=== PATIENT | female | born 1960 | race Asian ===

== ENCOUNTER 2024-01-12 15:18 | Inpatient (IN) | payer MEDICARE, OTHER ==
[~2024-01-12] VITALS: Ht 162.6 cm; Wt 79.2 kg
[2024-01-12] MEDS ORDERED: POLY17PO47 PO (16:55)
[2024-01-12] MEDS ORDERED: MAGN-169 PO (16:55)
[2024-01-12] MEDS ORDERED: PANT-31 PO (16:55)
[2024-01-12] MEDS ORDERED: MULT-1203 PO (16:55)
[2024-01-12] MEDS ORDERED: PALI6TAB15 PO (16:55)
[2024-01-12] MEDS ORDERED: PHEN100C10 PO (16:55)
[2024-01-12 17:18] LABS: BASOPHILS % (AUTO) 0.3 % (0.0-2.0); EOSINOPHILS % (AUTO) 1.4 % (1.0-6.0); HEMATOCRIT 31.4 % (36-46); HEMOGLOBIN 10.4 g/dL (12.0-16.0); LYMPHOCYTES # (AUTO) 1.4 K/uL (1.0-4.8); LYMPHOCYTES % (AUTO) 23.3 % (22.0-44.0); MEAN CORPUSCULAR HEMOGLOBIN 31.4 pg (26.0-34.0); MEAN CORPUSCULAR HGB CONC 33.1 G/dL (31.0-37.0); MEAN CORPUSCULAR VOLUME 95 fL (80-100); MONOCYTES # (AUTO) 0.6 K/uL (0.1-1.0); MONOCYTES % (AUTO) 10.4 % (2.0-9.0); NEUTROPHILS # (AUTO) 3.8 K/uL (1.8-7.7); NEUTROPHILS % (AUTO) 64.6 % (40.0-70.0); PLATELET COUNT (AUTO) 302 K/uL (150-450); RED CELL DISTRIBUTION WIDTH 14.2 % (11.5-14.5); WHITE BLOOD COUNT (AUTO) 5.9 K/uL (4.5-11.0)
[2024-01-12 17:38] LABS: ANION GAP 8 mmol/L (8-16); CALCIUM, TOTAL 8.4 mg/dL (8.8-10.5); CARBON DIOXIDE 27 mmol/L (22-29); CHLORIDE 103 mmol/L (98-107); CREATININE 0.66 mg/dL (0.60-1.30); GLOMERULAR FILTR. RATE CALC > 60 mL/min (>60); GLUCOSE,RANDOM 123 mg/dL (70-110); POTASSIUM 3.7 mmol/L (3.5-5.1); SODIUM SERUM 138 mmol/L (136-145); UREA NITROGEN, BLOOD 9 mg/dL (7-18)
[2024-01-12 17:45] LABS: ALANINE AMINOTRANSFERASE 29 U/L (12-78); ALKALINE PHOSPHATASE 113 U/L (46-116); ASPARTATE AMINOTRANSFERASE 23 U/L (15-37); BILIRUBIN,TOTAL 0.2 mg/dL (0.1-1.0); TOTAL PROTEIN, SERUM 6.9 g/dL (6.4-8.2)
[2024-01-12 17:54] LABS: TROPONIN I-HIGH SENSITIVITY 5 ng/L (<51)
[2024-01-13] MEDS ORDERED: ALBUTEROL SULFATE 2.5 MG/0.5 ML NEB SOLUTION NEB PRN (08:30)
[2024-01-13] MEDS ORDERED: IPRATROPIUM BROMIDE 0.5 MG/2.5 ML NEB SOLUTION NEB PRN (08:30)
[2024-01-13] MEDS: MULTIVITAMINS, THERAPEUTIC TABLET PO SCH (09:42)
[2024-01-13] MEDS: PANTOPRAZOLE SODIUM 40 MG DR TABLET PO SCH (09:42)
[2024-01-13] MEDS: PHENYTOIN SODIUM 100 MG ER CAPSULE PO SCH (09:42)
[2024-01-13] MEDS: ACETAMINOPHEN 325 MG TABLET PO PRN (10:12)
[2024-01-13 13:44] LABS: APPEARANCE,URINE CLEAR (CLEAR); BILIRUBIN,URINE NEGATIVE (NEGATIVE); COLOR,URINE LIGHT YELLOW (YELLOW); GLUCOSE, URINE (UA) NEGATIVE (NEGATIVE); KETONES,URINE NEGATIVE (NEGATIVE); LEUKOCYTE ESTERASE ,URINE SMALL (NEGATIVE); NITRATE,URINE NEGATIVE (NEGATIVE); OCCULT BLOOD,URINE NEGATIVE (NEGATIVE); PH,URINE 6.5 (5.0-8.0); PROTEIN,URINE NEGATIVE (NEGATIVE); SPECIFIC GRAVITIY, URINE 1.008 (1.003-1.030); UROBILINOGEN,URINE <=1.0 mg/dL (<=1.0)
[2024-01-13 14:15] LABS: BACTERIA,URINE Many /HPF (None Seen); RBC,URINE None Seen /HPF (0-2)
[2024-01-13] MEDS: PALIPERIDONE 6 MG ER TABLET PO SCH (20:18)
[2024-01-13 21:32] VITALS: BP 120/67; PULSE 77; RESP 18; TEMP 98.5; O2SAT 99
[2024-01-13] MEDS: MELATONIN 5 MG TABLET PO PRN (23:42)
[2024-01-14 04:41] VITALS: BP 132/80; PULSE 85; RESP 18; TEMP 97.5; O2SAT 97
[2024-01-14 08:00] LABS: GLUCOMETER DEV NAME(LOC) 6S.2; GLUCOSE,POINT OF CARE 108 MG/DL (70-110)
[2024-01-14 08:15] VITALS: BP 125/82; PULSE 82; RESP 20; TEMP 98.2; O2SAT 99
[2024-01-14 15:27] VITALS: BP 128/86; PULSE 96; RESP 20; TEMP 98.5; O2SAT 96
[2024-01-14 19:57] VITALS: BP 126/82; PULSE 90; RESP 18; TEMP 98.2; O2SAT 97
[2024-01-15 05:58] VITALS: BP 150/68; PULSE 87; RESP 18; TEMP 98.5; O2SAT 96
[2024-01-15 08:07] VITALS: BP 105/93; PULSE 81; RESP 18; TEMP 98.2; O2SAT 98
[2024-01-15] MEDS ORDERED: BENZ2TAB84 PO (14:01)
[2024-01-15] MEDS ORDERED: GABA-529 PO (14:01)
[2024-01-15] MEDS ORDERED: ESLI600T PO (14:01)
[2024-01-15] MEDS ORDERED: MEGE400O39 PO (14:01)
[2024-01-15] MEDS ORDERED: LEVE750T10 PO (14:01)
[2024-01-15] MEDS ORDERED: LEVO25TA9 PO (14:01)
[2024-01-15 15:25] VITALS: BP 123/76; PULSE 86; RESP 18; TEMP 98.4; O2SAT 94
[2024-01-15 19:42] VITALS: BP 136/74; PULSE 95; RESP 18; TEMP 99.2; O2SAT 96
[2024-01-15] MEDS: BENZTROPINE MESYLATE 2 MG TABLET PO SCH (21:31)
[2024-01-16 08:00] VITALS: BP 129/84; PULSE 97; RESP 16; TEMP 97.9; O2SAT 99
[2024-01-16] MEDS: ETHYL ALCOHOL 62% ANTISEPTIC NASAL SANITIZER 0.6 ML AMPUL NASAL SCH (08:46)
[2024-01-16 15:49] VITALS: BP 124/68; PULSE 79; RESP 18; TEMP 98.5; O2SAT 94
[2024-01-16 19:53] VITALS: BP 135/61; PULSE 83; RESP 18; TEMP 98; O2SAT 98
[2024-01-16] MEDS ORDERED: SODIUM CHLORIDE 0.9% 1,000 ML ONE (20:06)
[2024-01-16] MEDS: AMPICILLIN SODIUM/SULBACTAM NA 1.5 GM in SODIUM CHLORIDE 0.9% 50 ML IV SCH (20:13)
[2024-01-17 05:08] VITALS: BP 108/51; PULSE 76; RESP 20; TEMP 97.8; O2SAT 100
[2024-01-17 07:49] VITALS: BP 132/74; PULSE 87; RESP 19; TEMP 98.4; O2SAT 99
[2024-01-17 15:20] VITALS: BP 119/64; PULSE 87; RESP 18; TEMP 97.8; O2SAT 98
[2024-01-17 20:27] VITALS: BP 120/72; PULSE 83; RESP 18; TEMP 98.6; O2SAT 93
[2024-01-18 08:12] VITALS: BP 124/74; PULSE 87; RESP 20; TEMP 97.9; O2SAT 98
[2024-01-18] MEDS ORDERED: AMOX-457 PO (16:54)
[2024-01-18] MEDS ORDERED: ETHY1MED2 NASAL (16:57)
[2024-01-18] MEDS ORDERED: MELA5TAB40 PO (16:57)
[2024-01-18 17:27] VITALS: BP 131/63; PULSE 95; RESP 20; TEMP 98.1; O2SAT 98
[2024-01-18 20:16] VITALS: BP 116/68; PULSE 80; RESP 20; TEMP 98.2; O2SAT 96
[2024-01-18 20:19] LABS: COVID AG,FIA SOURCE NASAL SWAB
[2024-01-18 20:41] LABS: SARS-COV2 (COVID) ANTIGEN,FIA Negative (Negative)
== END 2024-01-18 22:30 | DRG 689 ==
LOC: EMS 15:18 → EDH 01-13 08:44 → 6S 01-13 08:55 → 4E 01-15 01:31
PROVIDERS: ADMIT Internal Medicine; ATTEND Internal Medicine
DX: N39.0 Urinary tract infection, site not specified (principal); E43 Unspecified severe protein-calorie malnutrition; R62.7 Adult failure to thrive; F41.9 Anxiety disorder, unspecified; G40.909 Epilepsy, unspecified, not intractable, without status epilepticus; E03.9 Hypothyroidism, unspecified; D64.9 Anemia, unspecified; I10 Essential (primary) hypertension; F25.9 Schizoaffective disorder, unspecified; Z88.8 Allergy status to other drugs, medicaments and biological substances; Z91.018 Allergy to other foods; Z68.30 Body mass index [BMI] 30.0-30.9, adult; R63.4 Abnormal weight loss; M19.90 Unspecified osteoarthritis, unspecified site
CPT/HCPCS: 71045; 80053; 81001; 82962; 84443; 84484; 85025; 87081; 87086; 87186; 92610; 93005; 97167; 97535; 99285; G0378; J0295; J7030; J7050; 36415-L1; 36415-TC

== ENCOUNTER 2024-01-18 15:48 | Inpatient (IN) | payer MEDICARE, MEDICAID ==
[~2024-01-18] VITALS: Ht 170.2 cm; Wt 75.7 kg
[~2024-01-18 15:48] MED LIST: BENZ2TAB84 PO; ESLI600T PO; GABA-529 PO; LEVE750T10 PO; LEVO25TA9 PO; MAGN-169 PO; MEGE400O39 PO; MULT-1203 PO; PALI6TAB15 PO; PANT-31 PO; PHEN100C10 PO; POLY17PO47 PO
[2024-01-18] MEDS ORDERED: AMOX-457 PO (16:54)
[2024-01-18] MEDS ORDERED: ETHY1MED2 NASAL (16:57)
[2024-01-18] MEDS ORDERED: MELA5TAB40 PO (16:57)
[2024-01-19 00:08] VITALS: BP 109/56; PULSE 82; RESP 18; TEMP 98.4; O2SAT 98
[2024-01-19] MEDS ORDERED: CloNIDine HCL 0.1 MG TABLET PO PRN (07:45)
[2024-01-19] MEDS ORDERED: BACITRACIN 28 GM OINTMENT TP PRN (07:45)
[2024-01-19] MEDS ORDERED: BENZOCAINE/MENTHOL LOZENGE PO PRN (07:45)
[2024-01-19] MEDS ORDERED: PETROLATUM,WHITE 28 GM JELLY TP PRN (07:45)
[2024-01-19] MEDS ORDERED: ONDANSETRON 4 MG TABLET PO PRN (07:45)
[2024-01-19 08:20] VITALS: BP 125/81; PULSE 74; RESP 18; TEMP 98.2; O2SAT 99
[2024-01-19] MEDS ORDERED: AMOX TR/POT CLAV 875 MG/125 MG TABLET PO SCH (09:00)
[2024-01-19] MEDS ORDERED: PHENYTOIN SODIUM 100 MG ER CAPSULE PO SCH (09:00)
[2024-01-19] MEDS ORDERED: MULTIVITAMINS, THERAPEUTIC TABLET PO SCH (09:00)
[2024-01-19] MEDS ORDERED: [UNRECOGNIZED DRUG - OTHER] PO SCH (09:00)
[2024-01-19] MEDS ORDERED: PANTOPRAZOLE SODIUM 40 MG DR TABLET PO SCH (09:00)
[2024-01-19] MEDS ORDERED: LEVOTHYROXINE SODIUM 25 MCG TABLET PO SCH (09:00)
[2024-01-19] MEDS: GABAPENTIN 100 MG CAPSULE PO SCH (11:52)
[2024-01-19] MEDS: AMOX TR/POT CLAV 875 MG/125 MG TABLET PO SCH (11:52)
[2024-01-19] MEDS: LEVOTHYROXINE SODIUM 25 MCG TABLET PO SCH (11:53)
[2024-01-19] MEDS: PHENYTOIN SODIUM 100 MG ER CAPSULE PO SCH (11:53)
[2024-01-19] MEDS: LevETIRAcetam 500 MG TABLET PO SCH (11:53)
[2024-01-19] MEDS: BENZTROPINE MESYLATE 2 MG TABLET PO SCH (11:54)
[2024-01-19] MEDS: ESCITALOPRAM OXALATE 10 MG TABLET PO SCH (11:55)
[2024-01-19] MEDS: MULTIVITAMINS, THERAPEUTIC TABLET PO SCH (11:56)
[2024-01-19] MEDS: ETHYL ALCOHOL 62% ANTISEPTIC NASAL SANITIZER 0.6 ML AMPUL NASAL SCH (12:10)
[2024-01-19 18:30] LABS: GLUCOMETER DEV NAME(LOC) 3EX.2; GLUCOSE,POINT OF CARE 108 MG/DL (70-110)
[2024-01-19] MEDS ORDERED: MELATONIN 5 MG TABLET PO PRN (21:00)
[2024-01-19] MEDS: PALIPERIDONE 6 MG ER TABLET PO SCH (21:27)
[2024-01-19] MEDS: MELATONIN 5 MG TABLET PO PRN (21:27)
[2024-01-19 22:07] VITALS: RESP 18
[2024-01-20 08:30] VITALS: BP 113/60; PULSE 85; RESP 16; TEMP 97.8; O2SAT 98
[2024-01-20 13:04] VITALS: BP 102/8; PULSE 108; RESP 18; TEMP 97.6
[2024-01-20] MEDS: ACETAMINOPHEN 325 MG TABLET PO PRN (13:08)
[2024-01-21] MEDS: LEVOTHYROXINE SODIUM 25 MCG TABLET PO SCH (06:39)
[2024-01-21 08:45] VITALS: BP 103/66; PULSE 87; RESP 19; TEMP 97.9; O2SAT 96
[2024-01-21 20:15] VITALS: BP 102/76; PULSE 66; RESP 18; TEMP 97.1; O2SAT 98
[2024-01-22 10:38] VITALS: BP 100/71; PULSE 91; RESP 18; TEMP 98.1; O2SAT 96
[2024-01-22 12:19] VITALS: BP 98/69; PULSE 94; RESP 18; TEMP 97.6
[2024-01-22] MEDS: IBUPROFEN 600 MG TABLET PO PRN (12:23)
[2024-01-22] MEDS: ZOLPIDEM TARTRATE 10 MG TABLET PO PRN (21:27)
[2024-01-22 22:34] VITALS: RESP 18; TEMP 97.2
[2024-01-23 06:12] VITALS: BP 103/64; PULSE 75; RESP 18; TEMP 97.2
[2024-01-23 09:20] VITALS: BP 97/57; PULSE 96; RESP 12; TEMP 97; O2SAT 98
[2024-01-23 10:20] VITALS: BP 111/68; PULSE 71; RESP 17; TEMP 98
[2024-01-23 16:19] VITALS: BP 128/66; PULSE 72; RESP 17; TEMP 97.6
[2024-01-23 17:19] VITALS: BP 118/73; PULSE 69; RESP 17; TEMP 97.8
[2024-01-23 20:00] VITALS: BP 104/70; PULSE 82; RESP 17; TEMP 96.9; O2SAT 99
[2024-01-24 08:56] VITALS: BP 109/58; PULSE 88; RESP 18; TEMP 97.9
[2024-01-24] MEDS: LORazepam 2 MG TABLET PO PRN (09:25)
[2024-01-24] MEDS: PALIPERIDONE PALMITATE 234 MG/1.5 ML SYRINGE IM ONE (21:57)
[2024-01-25 07:05] VITALS: BP 108/61; PULSE 83; RESP 18; TEMP 98.3; O2SAT 95
[2024-01-25 08:15] VITALS: BP 102/62; PULSE 74; RESP 16; TEMP 97.8; O2SAT 95
[2024-01-25 18:53] VITALS: BP 111/67; PULSE 78; RESP 17; TEMP 98.2; O2SAT 97
[2024-01-25 22:30] VITALS: BP 92/61; PULSE 75; RESP 18; TEMP 98.6; O2SAT 99
[2024-01-26 05:04] VITALS: RESP 18
[2024-01-26 08:15] VITALS: BP 115/78; PULSE 86; RESP 19; TEMP 97.6; O2SAT 95
[2024-01-26 13:49] VITALS: RESP 18
[2024-01-26 14:40] VITALS: RESP 17
[2024-01-26] MEDS: TUBERCULIN, PURIFIED PROTEIN DERIVATIVE 5 TU/0.1 ML SYRINGE ID ONE (18:33)
[2024-01-26 20:43] VITALS: BP 138/75; PULSE 89; RESP 18; TEMP 98
[2024-01-27 08:00] VITALS: BP 99/58; PULSE 74; RESP 17; TEMP 97; O2SAT 97
[2024-01-27 09:11] VITALS: BP 99/58; PULSE 74; RESP 17; TEMP 97; O2SAT 97
[2024-01-27 22:06] VITALS: BP 98/63; PULSE 78; RESP 17; TEMP 98.1; O2SAT 97
[2024-01-28 03:23] VITALS: BP 98/61; PULSE 81; RESP 18; TEMP 98.1; O2SAT 98
[2024-01-28] MEDS: MAGNESIUM HYDROXIDE SUSPENSION 30 ML UDCUP PO PRN (09:39)
[2024-01-28] MEDS: PALIPERIDONE PALMITATE 156 MG/ML SYRINGE IM ONE (10:30)
[2024-01-28 13:44] VITALS: BP 105/105; PULSE 75; RESP 17
[2024-01-28 14:09] VITALS: BP 100/65; PULSE 89; RESP 18
[2024-01-28 20:46] VITALS: BP 107/62; PULSE 62; RESP 18; O2SAT 98
[2024-01-28] MEDS: LOPERAMIDE HCL 2 MG CAPSULE PO PRN (21:24)
[2024-01-29 04:30] VITALS: BP 114/69; PULSE 86; RESP 18; O2SAT 99
[2024-01-29 09:36] VITALS: BP 127/78; PULSE 67; RESP 18; TEMP 97.3; O2SAT 98
[2024-01-29 14:22] VITALS: BP 117/78; PULSE 87; RESP 20
[2024-01-29 21:52] VITALS: BP 90/57; PULSE 78; RESP 18; TEMP 96.5
[2024-01-30 09:54] VITALS: BP 116/63; PULSE 79; RESP 18; TEMP 96.6; O2SAT 94
[2024-01-30 10:52] VITALS: RESP 18
[2024-01-30 11:55] VITALS: RESP 17
[2024-01-30 15:07] VITALS: BP 109/65; PULSE 77; RESP 18
[2024-01-30 16:13] VITALS: RESP 16
[2024-01-30 20:53] VITALS: BP 98/54; PULSE 80; RESP 18; TEMP 97.3; O2SAT 95
[2024-01-31 08:21] LABS: BASOPHILS % (AUTO) 0.3 % (0.0-2.0); EOSINOPHILS % (AUTO) 2.7 % (1.0-6.0); HEMATOCRIT 31.7 % (36-46); HEMOGLOBIN 10.6 g/dL (12.0-16.0); LYMPHOCYTES # (AUTO) 0.8 K/uL (1.0-4.8); LYMPHOCYTES % (AUTO) 12.9 % (22.0-44.0); MEAN CORPUSCULAR HEMOGLOBIN 32.1 pg (26.0-34.0); MEAN CORPUSCULAR HGB CONC 33.4 G/dL (31.0-37.0); MEAN CORPUSCULAR VOLUME 96 fL (80-100); MONOCYTES # (AUTO) 0.5 K/uL (0.1-1.0); MONOCYTES % (AUTO) 7.6 % (2.0-9.0); NEUTROPHILS # (AUTO) 4.9 K/uL (1.8-7.7); NEUTROPHILS % (AUTO) 76.5 % (40.0-70.0); PLATELET COUNT (AUTO) 206 K/uL (150-450); RED CELL DISTRIBUTION WIDTH 14.2 % (11.5-14.5); WHITE BLOOD COUNT (AUTO) 6.4 K/uL (4.5-11.0)
[2024-01-31 08:30] LABS: HEMOGLOBIN A1C 5.2 % (3.8-5.6)
[2024-01-31 08:53] LABS: ALANINE AMINOTRANSFERASE 28 U/L (12-78); ALBUMIN 2.9 g/dL (3.4-5.0); ALKALINE PHOSPHATASE 118 U/L (46-116); ANION GAP 6 mmol/L (8-16); ASPARTATE AMINOTRANSFERASE 20 U/L (15-37); BILIRUBIN,TOTAL 0.3 mg/dL (0.1-1.0); CALCIUM, TOTAL 8.6 mg/dL (8.8-10.5); CARBON DIOXIDE 29 mmol/L (22-29); CHLORIDE 104 mmol/L (98-107); CHOLESTEROL 161 mg/dL (131-200); CREATININE 0.65 mg/dL (0.60-1.30); GLOMERULAR FILTR. RATE CALC > 60 mL/min (>60); GLUCOSE,RANDOM 129 mg/dL (70-110); HDL CHOLESTEROL 54 mg/dL (40-60); LDL CHOL (CALC.) 87 mg/dL (0-130); POTASSIUM 3.8 mmol/L (3.5-5.1); SODIUM SERUM 139 mmol/L (136-145); THYROID STIMULATING HORMONE 1.43 uIU/mL (0.36-3.74); TOTAL PROTEIN, SERUM 6.7 g/dL (6.4-8.2); TRIGLYCERIDES 100 mg/dL (15-150); UREA NITROGEN, BLOOD 12 mg/dL (7-18)
[2024-01-31 09:30] VITALS: BP 96/56; PULSE 72; RESP 17; TEMP 97.8; O2SAT 96
[2024-01-31 13:43] VITALS: RESP 18
[2024-01-31 20:21] VITALS: BP 103/76; PULSE 66; RESP 18; TEMP 97.4; O2SAT 98
[2024-02-01 07:23] VITALS: BP 129/79; RESP 20; O2SAT 99
[2024-02-01 07:37] LABS: APPEARANCE,URINE CLEAR (CLEAR); BILIRUBIN,URINE NEGATIVE (NEGATIVE); COLOR,URINE LIGHT YELLOW (YELLOW); GLUCOSE, URINE (UA) NEGATIVE (NEGATIVE); KETONES,URINE NEGATIVE (NEGATIVE); LEUKOCYTE ESTERASE ,URINE LARGE (NEGATIVE); NITRATE,URINE POSITIVE (NEGATIVE); OCCULT BLOOD,URINE NEGATIVE (NEGATIVE); PROTEIN,URINE NEGATIVE (NEGATIVE); SPECIFIC GRAVITIY, URINE 1.009 (1.003-1.030); UROBILINOGEN,URINE <=1.0 mg/dL (<=1.0)
[2024-02-01 07:48] LABS: RBC,URINE 0-2 /HPF (0-2); WBC,URINE 26-50 /HPF (0-5)
[2024-02-01 07:49] LABS: BACTERIA,URINE Many /HPF (None Seen); SQUAMOUS EPITHELIAL CELL,UR Few /LPF (None Seen)
[2024-02-01 08:39] VITALS: BP 95/60; PULSE 78; RESP 17; TEMP 97.8; O2SAT 98
[2024-02-01] MEDS: CEFUROXIME AXETIL 250 MG TABLET PO SCH (12:28)
[2024-02-01] MEDS: HALOPERIDOL 5 MG TABLET PO PRN (14:38)
[2024-02-01 20:42] VITALS: BP 93/64; PULSE 83; RESP 18; TEMP 97.9; O2SAT 97
[2024-02-02 10:00] VITALS: BP 120/78; PULSE 109; RESP 20; TEMP 97.2; O2SAT 95
[2024-02-02 12:48] VITALS: BP 102/61; PULSE 71; RESP 17; TEMP 98.2
[2024-02-02 23:03] VITALS: BP 97/58; PULSE 74; RESP 18; TEMP 97.1; O2SAT 96
[2024-02-03 08:31] VITALS: BP 99/66; PULSE 102; RESP 17; TEMP 97.5; O2SAT 100
[2024-02-03 08:53] VITALS: BP 99/66; PULSE 99; RESP 18; TEMP 97.5; O2SAT 100
[2024-02-03 09:31] VITALS: BP 101/70
[2024-02-03] MEDS: DOCUSATE SODIUM 100 MG CAPSULE PO PRN (13:03)
[2024-02-03] MEDS: ALBUTEROL SULFATE HFA 90 MCG/PUFF 8 GM INHALER IH PRN (21:52)
[2024-02-03 22:10] VITALS: BP 95/64; PULSE 77; RESP 18; TEMP 97.4; O2SAT 99
[2024-02-04 09:35] VITALS: BP 99/75; PULSE 89; RESP 18; TEMP 99.8; O2SAT 97
[2024-02-04 22:24] VITALS: BP 99/63; PULSE 85; RESP 18; TEMP 97.5; O2SAT 95
[2024-02-05 02:56] VITALS: BP 110/65; PULSE 75; RESP 18; TEMP 97.7; O2SAT 96
[2024-02-05] MEDS: MAG HYDROX/ALUMINUM HYD/SIMETH ES 30 ML SUSPENSION UDCUP PO PRN (03:04)
[2024-02-05 04:06] VITALS: RESP 16
[2024-02-05 10:57] VITALS: BP 100/64; PULSE 79; RESP 19; TEMP 97.5; O2SAT 97
[2024-02-05 12:00] VITALS: RESP 18
[2024-02-05 12:59] VITALS: RESP 16
[2024-02-05 20:43] VITALS: BP 92/59; PULSE 78; RESP 18; TEMP 97.5; O2SAT 98
[2024-02-06 09:44] VITALS: BP 102/60; PULSE 81; RESP 17; TEMP 97.3; O2SAT 95
[2024-02-06 20:04] VITALS: BP 90/60; PULSE 75; RESP 18; TEMP 96.4; O2SAT 96
[2024-02-07 10:56] VITALS: BP 117/63; PULSE 69; RESP 19; TEMP 97.2; O2SAT 98
[2024-02-07 13:32] VITALS: BP 105/66; PULSE 86; RESP 18; TEMP 98.6
[2024-02-07 14:32] VITALS: BP 111/63; RESP 18; TEMP 98; O2SAT 87
[2024-02-07 21:33] VITALS: BP 91/65; PULSE 75; RESP 18; TEMP 97.9; O2SAT 96
[2024-02-08 13:37] VITALS: BP 100/68; PULSE 88; RESP 19; TEMP 97.3; O2SAT 96
[2024-02-08 20:00] VITALS: BP 91/60; PULSE 76; RESP 18; TEMP 97.6; O2SAT 96
[2024-02-09 22:15] VITALS: BP 105/66; PULSE 73; RESP 18; TEMP 97.5; O2SAT 95
[2024-02-10 04:20] VITALS: BP 102/56; PULSE 80; RESP 18; TEMP 97.2; O2SAT 96
[2024-02-10] MEDS: OMEPRAZOLE 20 MG CAPSULE PO PRN (08:53)
[2024-02-10 10:05] VITALS: BP 110/60; PULSE 82; RESP 16; TEMP 98; O2SAT 97
[2024-02-10 20:51] VITALS: BP 105/71; PULSE 85; RESP 18; TEMP 97.1; O2SAT 96
[2024-02-11 09:53] VITALS: BP 112/74; PULSE 89; RESP 16; TEMP 97.6; O2SAT 98
[2024-02-11 22:01] VITALS: BP 109/70; PULSE 104; RESP 18; TEMP 97.3; O2SAT 96
[2024-02-12 10:02] VITALS: BP 139/74; PULSE 109; RESP 18; TEMP 97.1; O2SAT 99
[2024-02-12 20:56] VITALS: BP 108/64; PULSE 86; RESP 18; TEMP 97.9
[2024-02-13 11:01] VITALS: BP 100/75; PULSE 88; RESP 16; TEMP 97.7; O2SAT 98
[2024-02-13 22:47] VITALS: BP 97/65; PULSE 74; RESP 18; TEMP 97.9; O2SAT 95
[2024-02-14 10:28] VITALS: BP 121/69; PULSE 78; RESP 18; TEMP 97.8; O2SAT 94
[2024-02-14 20:51] VITALS: BP 106/72; PULSE 86; RESP 18; TEMP 97.6; O2SAT 97
[2024-02-15 10:00] VITALS: BP 121/60; PULSE 88; RESP 19; TEMP 97.5; O2SAT 95
[2024-02-15 21:23] VITALS: BP 95/62; PULSE 81; RESP 18; TEMP 97.7; O2SAT 97
[2024-02-16 09:10] VITALS: BP 123/67; PULSE 104; RESP 18; TEMP 97.6; O2SAT 97
[2024-02-16 21:05] VITALS: BP 130/97; PULSE 80; RESP 16; TEMP 97.1; O2SAT 98
[2024-02-17 08:48] VITALS: BP 99/68; PULSE 64; RESP 18; TEMP 97.6; O2SAT 96
[2024-02-17 20:31] VITALS: BP 110/74; PULSE 84; RESP 18; TEMP 98; O2SAT 97
[2024-02-18 09:20] VITALS: BP 97/67; PULSE 98; RESP 18; TEMP 98.4; O2SAT 98
[2024-02-18 12:48] VITALS: BP 112/73; PULSE 84; RESP 18; TEMP 98.1; O2SAT 96
[2024-02-18 20:09] VITALS: BP 115/73; PULSE 75; RESP 17; TEMP 97.5; O2SAT 98
[2024-02-19 08:46] VITALS: BP 109/67; PULSE 69; RESP 17; TEMP 96.8; O2SAT 99
[2024-02-19 21:15] VITALS: BP 104/68; PULSE 79; RESP 18; TEMP 97.3; O2SAT 97
[2024-02-20 08:40] VITALS: BP 110/69; PULSE 98; RESP 18; TEMP 97; O2SAT 98
[2024-02-20 20:32] VITALS: BP 95/62; PULSE 70; RESP 20; TEMP 87; TEMP 97; O2SAT 95
[2024-02-21 02:45] VITALS: BP 114/66; PULSE 80; RESP 20; O2SAT 98
[2024-02-21 03:48] VITALS: RESP 18
[2024-02-21 10:42] VITALS: BP 106/58; PULSE 79; RESP 18; TEMP 96.7; O2SAT 97
[2024-02-21 20:54] VITALS: BP 106/76; PULSE 87; RESP 18; TEMP 97.5; O2SAT 99
[2024-02-22 09:24] VITALS: BP 96/64; PULSE 77; RESP 18; TEMP 97.5; O2SAT 98
[2024-02-22 20:07] VITALS: BP 127/76; PULSE 72; RESP 18; TEMP 98.1; O2SAT 98
[2024-02-23 04:56] VITALS: BP 106/63; PULSE 76; RESP 18; O2SAT 96
[2024-02-23 05:56] VITALS: RESP 19
[2024-02-23 09:01] VITALS: BP 112/70; PULSE 74; RESP 17; TEMP 97.2; O2SAT 95
[2024-02-23 20:48] VITALS: BP 90/60; PULSE 75; RESP 18; TEMP 97.4; O2SAT 97
[2024-02-24 10:40] VITALS: BP 103/63; PULSE 72; RESP 18; TEMP 97.3; O2SAT 98
[2024-02-24 20:30] VITALS: BP 91/61; PULSE 77; RESP 19; TEMP 97; O2SAT 95
[2024-02-25] MEDS: PALIPERIDONE PALMITATE 234 MG/1.5 ML SYRINGE IM SCH (08:34)
[2024-02-25 10:49] VITALS: BP 98/63; PULSE 80; RESP 19; TEMP 98.2; O2SAT 97
[2024-02-25 20:46] VITALS: BP 112/71; PULSE 69; RESP 16; TEMP 97.6; O2SAT 96
[2024-02-26 10:03] VITALS: BP 129/88; PULSE 88; RESP 19; TEMP 97.6; O2SAT 97
[2024-02-26 21:21] VITALS: BP 100/62; PULSE 75; RESP 18; TEMP 97.7; O2SAT 97
[2024-02-27 08:21] VITALS: BP 97/52; PULSE 72; RESP 18; TEMP 97.5; O2SAT 96
[2024-02-27 21:26] VITALS: BP 93/59; PULSE 76; RESP 18; TEMP 97.3; O2SAT 96
[2024-02-28 10:43] VITALS: BP 113/69; PULSE 90; RESP 18; TEMP 97.2; O2SAT 98
[2024-02-28 20:49] VITALS: BP 90/64; PULSE 68; RESP 18; TEMP 97.6; O2SAT 98
[2024-02-29 10:04] VITALS: BP 107/58; PULSE 84; RESP 18; TEMP 97.5; O2SAT 99
[2024-02-29 21:49] VITALS: BP 110/66; PULSE 77; RESP 18; TEMP 97.5; O2SAT 99
[2024-03-01 09:30] VITALS: BP 100/63; PULSE 80; RESP 18; TEMP 97.7; O2SAT 97
[2024-03-01 10:15] VITALS: BP 100/63; PULSE 80; RESP 18; TEMP 97.7
[2024-03-01 21:54] VITALS: BP 96/67; PULSE 78; RESP 18; TEMP 96.9; O2SAT 95
[2024-03-02 09:42] VITALS: BP 90/60; PULSE 89; RESP 19; TEMP 97.3; O2SAT 89
[2024-03-02] MEDS ORDERED: PALI234D IM (11:44)
[2024-03-02] MEDS ORDERED: ESCI-8 PO (11:44)
== END 2024-03-02 12:15 | DRG 885 ==
LOC: 3EX 23:00
PROVIDERS: ADMIT Psychiatry & Neurology Psychiatry; ATTEND Psychiatry & Neurology Psychiatry
PROC: GZHZZZZ Group Psychotherapy (ICD-10-PCS; principal; 2024-01-19)
PROC: GZ51ZZZ Individual Psychotherapy, Behavioral (ICD-10-PCS; 2024-01-19)
DX: F25.0 Schizoaffective disorder, bipolar type (principal); N39.0 Urinary tract infection, site not specified; R62.7 Adult failure to thrive; G40.909 Epilepsy, unspecified, not intractable, without status epilepticus; E03.9 Hypothyroidism, unspecified; K59.00 Constipation, unspecified; G47.00 Insomnia, unspecified; D64.9 Anemia, unspecified; E66.9 Obesity, unspecified; M81.0 Age-related osteoporosis without current pathological fracture; F41.1 Generalized anxiety disorder; E55.9 Vitamin D deficiency, unspecified; Z79.899 Other long term (current) drug therapy; Z68.26 Body mass index [BMI] 26.0-26.9, adult; Z88.8 Allergy status to other drugs, medicaments and biological substances
CPT/HCPCS: 80053; 80061; 80185; 81001; 82962; 83036; 84443; 85025; 87086; 87186; 97110; 97116; 97162; 97166; 97530; 97535; G0378; G0482; J3535

== ENCOUNTER 2024-07-26 13:56 | Inpatient (IN) | payer MEDICARE, BC, MEDICAID ==
[~2024-07-26] VITALS: Ht 167.6 cm; Wt 74.8 kg
[~2024-07-26 13:56] MED LIST changes: +ESCI-8 PO; -ESLI600T PO; +ETHY1MED2 NASAL; -MAGN-169 PO; -MEGE400O39 PO; +PALI234D IM; -PALI6TAB15 PO; -PANT-31 PO; -PHEN100C10 PO; +PHEN100C74 PO; -POLY17PO47 PO
[2024-07-26 14:45] LABS: BASOPHILS % (AUTO) 0.6 % (0.0-2.0); EOSINOPHILS % (AUTO) 3.7 % (1.0-6.0); HEMATOCRIT 36.8 % (36-46); HEMOGLOBIN 12.1 g/dL (12.0-16.0); LYMPHOCYTES # (AUTO) 2.3 K/uL (1.0-4.8); LYMPHOCYTES % (AUTO) 24.5 % (22.0-44.0); MEAN CORPUSCULAR HEMOGLOBIN 30.6 pg (26.0-34.0); MEAN CORPUSCULAR HGB CONC 32.8 G/dL (31.0-37.0); MEAN CORPUSCULAR VOLUME 93 fL (80-100); MONOCYTES # (AUTO) 0.9 K/uL (0.1-1.0); MONOCYTES % (AUTO) 9.7 % (2.0-9.0); NEUTROPHILS # (AUTO) 5.7 K/uL (1.8-7.7); NEUTROPHILS % (AUTO) 61.5 % (40.0-70.0); PLATELET COUNT (AUTO) 316 K/uL (150-450); RED BLOOD CELL COUNT(AUTO) 3.95 MIL/uL (4.00-5.20); RED CELL DISTRIBUTION WIDTH 14.3 % (11.5-14.5); WHITE BLOOD COUNT (AUTO) 9.3 K/uL (4.5-11.0)
[2024-07-26 14:46] LABS: APPEARANCE,URINE CLEAR (CLEAR); BILIRUBIN,URINE NEGATIVE (NEGATIVE); COLOR,URINE COLORLESS (YELLOW); GLUCOSE, URINE (UA) NEGATIVE (NEGATIVE); KETONES,URINE NEGATIVE (NEGATIVE); LEUKOCYTE ESTERASE ,URINE MODERATE (NEGATIVE); NITRATE,URINE NEGATIVE (NEGATIVE); OCCULT BLOOD,URINE NEGATIVE (NEGATIVE); PROTEIN,URINE NEGATIVE (NEGATIVE); SPECIFIC GRAVITIY, URINE 1.005 (1.003-1.030); UROBILINOGEN,URINE <=1.0 mg/dL (<=1.0)
[2024-07-26 14:53] LABS: ANION GAP 9 mmol/L (8-16); CALCIUM, TOTAL 8.5 mg/dL (8.8-10.5); CARBON DIOXIDE 27 mmol/L (22-29); CHLORIDE 105 mmol/L (98-107); CREATININE 0.75 mg/dL (0.60-1.30); GLOMERULAR FILTR. RATE CALC > 60 mL/min (>60); GLUCOSE,RANDOM 81 mg/dL (70-110); SODIUM SERUM 141 mmol/L (136-145); UREA NITROGEN, BLOOD 9 mg/dL (7-18)
[2024-07-26 14:53] LABS: ALCOHOL, URINE DRUG SCREEN NEGATIVE (NEGATIVE); AMPHET/METH SCREEN,URINE NEGATIVE (NEGATIVE); BARBITURATE SCREEN, URINE NEGATIVE (NEGATIVE); BENZODIAZEPINES SCREEN,URINE NEGATIVE (NEGATIVE); CANNABINOID SCREEN,URINE NEGATIVE (NEGATIVE); COCAINE SCREEN,URINE NEGATIVE (NEGATIVE); METHADONE SCREEN, URINE NEGATIVE (NEGATIVE); OPIATE SCREEN,URINE NEGATIVE (NEGATIVE); PHENCYCLIDINE SCREEN,URINE NEGATIVE (NEGATIVE)
[2024-07-26 15:03] LABS: ALCOHOL, BLOOD (SERUM) < 3 mg/dL (0-10)
[2024-07-26 15:07] LABS: PHENYTOIN (DILANTIN) 19.9 mcg/mL (10.0-20.0); THYROID STIMULATING HORMONE 2.65 uIU/mL (0.36-3.74)
[2024-07-26 15:11] LABS: BACTERIA,URINE Rare /HPF (None Seen); RBC,URINE None Seen /HPF (0-2); SQUAMOUS EPITHELIAL CELL,UR Rare /LPF (None Seen)
[2024-07-26 15:15] LABS: COVID AG,FIA SOURCE NPH
[2024-07-26 15:33] LABS: SARS-COV2 (COVID) ANTIGEN,FIA Negative (Negative)
[2024-07-26] MEDS: CEPHALEXIN MONOHYDRATE 500 MG CAPSULE PO ONE (15:44)
[2024-07-26] MEDS ORDERED: GABA-1216 PO (16:23)
[2024-07-26] MEDS ORDERED: BUSP5TAB20 PO (16:23)
[2024-07-26] MEDS ORDERED: NA P133E8 PR (16:23)
[2024-07-26] MEDS ORDERED: BISA10SU11 PR (16:23)
[2024-07-26] MEDS ORDERED: LEVE250T81 PO (16:28)
[2024-07-26] MEDS ORDERED: IBUP-1492 PO (16:28)
[2024-07-26] MEDS ORDERED: PROMETHAZINE HCL 25 MG TABLET PO PRN (16:45)
[2024-07-26] MEDS ORDERED: LORazepam 1 MG TABLET PO PRN (16:45)
[2024-07-26] MEDS ORDERED: TUBERCULIN, PURIFIED PROTEIN DERIVATIVE 5 TU/0.1 ML SYRINGE ID ONE ×2 (16:45)
[2024-07-26] MEDS ORDERED: LOPERAMIDE HCL 2 MG CAPSULE PO PRN (16:45)
[2024-07-26] MEDS ORDERED: GuaiFENesin/D-METHORPHAN [SUGAR-FREE] 200-20MG/10 ML SYRUP UDCUP PO PRN (16:45)
[2024-07-26] MEDS ORDERED: OLANZapine 5 MG RAPDIS TABLET PO PRN (16:45)
[2024-07-26] MEDS: LORazepam 2 MG/ML VIAL IM ONE ×2 (17:46→17:48)
[2024-07-26] MEDS: HALOPERIDOL LACTATE 5 MG/ML VIAL IM ONE ×2 (17:47→17:49)
[2024-07-26] MEDS: DiphenhydrAMINE HCL 50 MG/ML VIAL IM ONE ×2 (17:48→17:49)
[2024-07-26] MEDS ORDERED: OLAN5TAB52 PO (18:01)
[2024-07-26] MEDS ORDERED: MULT-248 PO (18:01)
[2024-07-26] MEDS ORDERED: SODI45SP10 NASAL (18:01)
[2024-07-26] MEDS ORDERED: LOPE-232 PO (18:01)
[2024-07-26] MEDS ORDERED: MAGN-169 PO (18:01)
[2024-07-26] MEDS ORDERED: [UNRECOGNIZED DRUG - CODE] PO (18:01)
[2024-07-26] MEDS ORDERED: SENN8.6T20 PO (18:01)
[2024-07-26] MEDS ORDERED: MELA5TAB40 PO (18:01)
[2024-07-26] MEDS: ZOLPIDEM TARTRATE 10 MG TABLET PO PRN (19:14)
[2024-07-26] MEDS: THIAMINE 100 MG TABLET PO SCH (21:06)
[2024-07-26] MEDS: OLANZapine 5 MG RAPDIS TABLET PO SCH (21:06)
[2024-07-26] MEDS: MELATONIN 5 MG TABLET PO SCH (21:06)
[2024-07-26] MEDS: GABAPENTIN 300 MG CAPSULE PO SCH (21:06)
[2024-07-26 21:20] VITALS: O2SAT 100
[2024-07-26] MEDS: MIRTAZAPINE 15 MG TABLET PO SCH (22:02)
[2024-07-26 23:47] VITALS: BP 138/85; PULSE 63; RESP 16; TEMP 97; O2SAT 99
[2024-07-27] VITALS (11 sets, daily range): BP systolic 120–144; BP diastolic 74–86; PULSE 60–75; RESP 16–48; TEMP 96.7–98; O2SAT 96–100
[2024-07-27] MEDS ORDERED: INFLUENZA VIRUS VACCINE TVS (6MO+) 2024-25/PF 45 MCG/0.5 ML SYRINGE IM. ONE (00:15)
[2024-07-27] MEDS ORDERED: DULoxetine HCL 20 MG CAPSULE PO SCH (09:00)
[2024-07-27] MEDS: FOLIC ACID 1 MG TABLET PO SCH (10:10)
[2024-07-27] MEDS: LamoTRIgine 25 MG TABLET PO SCH (10:11)
[2024-07-27] MEDS: DULoxetine HCL 20 MG CAPSULE PO SCH (10:12)
[2024-07-27] MEDS: MULTIVITAMINS WITH MINERALS, THERAPEUTIC TABLET PO SCH (10:12)
[2024-07-27] MEDS: HydrOXYzine PAMOATE 50 MG CAPSULE PO PRN (13:02)
[2024-07-28 09:33] VITALS: BP 98/65; PULSE 81; RESP 18; TEMP 97; O2SAT 98
[2024-07-28 09:34] LABS: CHOL/HDL RATIO 2.9 (3.9-5.7); FREE T4 (FREE THYROXINE) 0.69 ng/dL (0.76-1.46); THYROID STIMULATING HORMONE 1.86 uIU/mL (0.36-3.74)
[2024-07-28 09:35] LABS: HEMOGLOBIN A1C 5.2 % (3.8-5.6)
[2024-07-28] MEDS: ETHYL ALCOHOL 62% ANTISEPTIC NASAL SANITIZER 0.6 ML AMPUL NASAL ONE (10:36)
[2024-07-28] MEDS: GABAPENTIN 100 MG CAPSULE PO SCH (17:07)
[2024-07-28] MEDS: ETHYL ALCOHOL 62% ANTISEPTIC NASAL SANITIZER 0.6 ML AMPUL NASAL SCH (21:27)
[2024-07-28] MEDS: OLANZapine 10 MG RAPDIS TABLET PO SCH (21:27)
[2024-07-28] MEDS: CHLORHEXIDINE GLUCONATE 2% TOWELETTE [2'S/6'S] TP SCH (21:27)
[2024-07-28 21:43] VITALS: RESP 17; TEMP 97.4
[2024-07-28 23:46] VITALS: BP 116/68; PULSE 72; RESP 16; TEMP 97.9; O2SAT 98
[2024-07-29 06:07] LABS: HEPATITIS C AB (EIA) Non Reactive (Non Reactive)
[2024-07-29 08:09] VITALS: BP 128/77; PULSE 79; RESP 16; TEMP 97.3; O2SAT 95
[2024-07-29 11:19] VITALS: BP 119/85; PULSE 85; RESP 15; TEMP 98; O2SAT 95
[2024-07-29 23:45] VITALS: RESP 18
[2024-07-30] VITALS (10 sets, daily range): BP systolic 113–147; BP diastolic 63–96; PULSE 77–124; RESP 16–18; TEMP 97.3–98.4; O2SAT 94–97
[2024-07-30] MEDS: ACETAMINOPHEN 325 MG TABLET PO PRN (17:59)
[2024-07-30] MEDS ORDERED: ZOLPIDEM TARTRATE 5 MG TABLET PO PRN (19:30)
[2024-07-31] VITALS (8 sets, daily range): BP systolic 109–124; BP diastolic 63–80; PULSE 65–112; RESP 16–18; TEMP 97–98.4; O2SAT 95–98
[2024-07-31] MEDS: GABAPENTIN 100 MG CAPSULE PO SCH (08:29)
[2024-07-31] MEDS: MAGNESIUM HYDROXIDE SUSPENSION 30 ML UDCUP PO PRN (09:10)
[2024-07-31] MEDS: MAG HYDROX/ALUMINUM HYD/SIMETH ES 30 ML SUSPENSION UDCUP PO PRN (09:10)
[2024-08-01] MEDS ORDERED: OLANZapine 5 MG RAPDIS TABLET PO SCH (09:00)
[2024-08-01] MEDS: DULoxetine HCL 30 MG CAPSULE PO SCH (09:19)
[2024-08-01] MEDS: LamoTRIgine 25 MG TABLET PO SCH (09:20)
[2024-08-01] MEDS: GABAPENTIN 100 MG CAPSULE PO SCH (09:20)
[2024-08-01] MEDS: AMANTADINE HCL 100 MG CAPSULE PO SCH (09:21)
[2024-08-01] MEDS: OLANZapine 5 MG RAPDIS TABLET PO SCH (09:21)
[2024-08-01 10:05] VITALS: BP 101/68; PULSE 80; RESP 17; TEMP 97.5; O2SAT 98
[2024-08-01 10:24] VITALS: BP 101/97; PULSE 80; RESP 18; TEMP 97.5; O2SAT 98
[2024-08-01] MEDS ORDERED: AMAN-24 PO (15:02)
[2024-08-01] MEDS ORDERED: OLAN5TAB94 PO (15:02)
[2024-08-01] MEDS ORDERED: LAMO25TA36 PO (15:02)
[2024-08-01] MEDS ORDERED: DULO-114 PO (15:02)
[2024-08-01] MEDS ORDERED: GABA-1216 PO (15:02)
[2024-08-01 20:33] VITALS: BP 117/78; PULSE 74; RESP 18; TEMP 97.9; O2SAT 95
[2024-08-02 09:55] VITALS: BP 121/71; PULSE 96; RESP 17; TEMP 97.9; O2SAT 99
== END 2024-08-02 12:17 | DRG 885 ==
LOC: EMS 14:13 → B2S 23:32
PROVIDERS: ADMIT Psychiatry & Neurology Psychiatry; ATTEND Psychiatry & Neurology Psychiatry
PROC: GZHZZZZ Group Psychotherapy (ICD-10-PCS; principal; 2024-07-27)
PROC: GZ51ZZZ Individual Psychotherapy, Behavioral (ICD-10-PCS; 2024-07-27)
DX: F25.9 Schizoaffective disorder, unspecified (principal); N39.0 Urinary tract infection, site not specified; R45.851 Suicidal ideations; F31.9 Bipolar disorder, unspecified; G40.909 Epilepsy, unspecified, not intractable, without status epilepticus; Z20.822 Contact with and (suspected) exposure to COVID-19; E03.9 Hypothyroidism, unspecified; Z63.9 Problem related to primary support group, unspecified; Z59.9 Problem related to housing and economic circumstances, unspecified; Z65.3 Problems related to other legal circumstances; Z55.9 Problems related to education and literacy, unspecified; F41.9 Anxiety disorder, unspecified; G47.00 Insomnia, unspecified; K59.00 Constipation, unspecified; Z60.8 Other problems related to social environment; Z88.8 Allergy status to other drugs, medicaments and biological substances; Z91.199 Patient's noncompliance with other medical treatment and regimen due to unspecified reason; Z91.51 Personal history of suicidal behavior; M81.0 Age-related osteoporosis without current pathological fracture
CPT/HCPCS: 80048; 80061; 80185; 80307; 81001; 83036; 84439; 84443; 85025; 86592; 86803; 87081; 87086; 87340; 96372; 99285; G0480; J1200; J1630; J2060